=== PATIENT | female | born 1970 | race Caucasian/White ===

== ENCOUNTER 2021-09-24 09:50 | Emergency (ER) | payer BC ==
[~2021-09-24] VITALS: Ht 149.9 cm; Wt 66.8 kg
[2021-09-24] MEDS ORDERED: ASPIRIN 81 MG CHEW TABLET PO ONE (10:10)
[2021-09-24] MEDS ORDERED: NITROGLYCERIN 0.4 MG SUBL TABLET SL PRN (10:10)
[2021-09-24 10:37] VITALS: BP 117/71
[2021-09-24 10:42] LABS: BASO % 0.4 % (0.0-1.0); EOS # 0.1 10^3/uL (0.0-0.5); EOS % 1.3 % (0.0-3.0); HEMATOCRIT 41.7 % (36.0-47.0); HEMOGLOBIN 13.6 g/dl (12.0-15.5); LYMPH # 2.2 10^3/uL (1.5-5.0); LYMPH % 31.8 % (24.0-44.0); MEAN CORPUSCULAR HEMOGLOBIN 29.2 pg (27.0-33.0); MEAN CORPUSCULAR HGB CONC 32.6 g/dl (32.0-36.5); MEAN CORPUSCULAR VOLUME 89.7 fl (80.0-96.0); MONO # 0.4 10^3/uL (0.0-0.8); MONO % 5.2 % (2.0-8.0); NEUTROPHILS # 4.1 10^3/uL (1.5-8.5); PLATELET COUNT, AUTOMATED 250 10^3/uL (150-450); RED BLOOD COUNT 4.65 10^6/uL (4.00-5.40); WHITE BLOOD COUNT 6.8 10^3/uL (4.0-10.0)
[2021-09-24] MEDS ORDERED: ISOVUE-370 76% 100ML VIAL As Ordered ONE (10:47)
[2021-09-24 11:13] LABS: CK-MB VALUE MASS < 1.0 NG/ML (<3.6); CPK CREATINE PHOSPHOKINASE 53 U/L (26-192); MB/CK RELATIVE INDEX 1.89 (< OR =4)
[2021-09-24 11:20] LABS: ALBUMIN 3.5 GM/DL (3.2-5.2); ALT/SGPT 23 U/L (12-78); BILIRUBIN,DIRECT 0.3 MG/DL (0.0-0.2); BILIRUBIN,TOTAL 0.4 MG/DL (0.2-1.0); BLOOD UREA NITROGEN 16 MG/DL (7-18); CALCIUM LEVEL 8.9 MG/DL (8.5-10.1); CARBON DIOXIDE LEVEL 26 MEQ/L (21-32); CHLORIDE LEVEL 112 MEQ/L (98-107); CREATININE FOR GFR 0.92 MG/DL (0.55-1.30); GLOMERULAR FILTRATION RATE > 60.0 (>51); GLUCOSE, FASTING 139 MG/DL (70-100); LIPASE 179 U/L (73-393); NT-PRO BNP 176 PG/ML (<125); POTASSIUM SERUM 4.1 MEQ/L (3.5-5.1); SODIUM LEVEL 144 MEQ/L (136-145); TOTAL PROTEIN 6.7 GM/DL (6.4-8.2)
[2021-09-24 13:24] LABS: CPK CREATINE PHOSPHOKINASE 57 U/L (26-192); MB/CK RELATIVE INDEX 1.75 (< OR =4)
[2021-09-24] MEDS ORDERED: MULT-90 PO (14:09)
[2021-09-24] MEDS ORDERED: PEPC1TAB5 PO (14:11)
[2021-09-24] MEDS ORDERED: CARA1TAB6 PO (14:11)
[2021-09-24 14:16] VITALS: BP 123/89
== END 2021-09-24 14:27 | disposition home or self-care (01) ==
LOC: M ED 09:50
DX: R07.9 Chest pain, unspecified (principal); Z88.0 Allergy status to penicillin
CPT/HCPCS: 36415; 71045; 71275; 80047; 80048; 80076; 82550; 82553; 83690; 83880; 84443; 84484; 85025; 93005; 93041; 94760; 99285; Q9967